=== PATIENT | male | born 1955 | race Caucasian/White ===

== ENCOUNTER → 2020-07-22 | Outpatient (CLI) | payer OTHER ==
[~2020-07-22] MED LIST: ASPIRIN325 PO; BYSTOLIC 5 MG5 MG PO; COZAAR100 MG PO; EFFIENT10 MG PO; LIPITOR80 MG PO; NITROQUICK0.4 MG SL; PRILOSEC40 MG PO
== END ==
LOC: CAT 12-21 11:34
PROVIDERS: ATTEND Internal Medicine Cardiovascular Disease
DX: Z13.6 Encounter for screening for cardiovascular disorders (principal); I25.10 Atherosclerotic heart disease of native coronary artery without angina pectoris; E78.00 Pure hypercholesterolemia, unspecified

== ENCOUNTER → 2021-02-23 | Outpatient (CLI) | payer OTHER | LOC: SJCVCIMAG 10:14 | PROVIDERS: ATTEND Internal Medicine Cardiovascular Disease | DX: I65.23 Occlusion and stenosis of bilateral carotid arteries (principal); F17.200 Nicotine dependence, unspecified, uncomplicated; Z79.899 Other long term (current) drug therapy ==

== ENCOUNTER → 2021-03-17 | Outpatient (CLI) | payer OTHER | LOC: SJCVCIMAG 08:28 | PROVIDERS: ATTEND Internal Medicine Cardiovascular Disease | DX: I08.3 Combined rheumatic disorders of mitral, aortic and tricuspid valves (principal); I48.91 Unspecified atrial fibrillation; I10 Essential (primary) hypertension; I73.9 Peripheral vascular disease, unspecified; E78.5 Hyperlipidemia, unspecified; F17.200 Nicotine dependence, unspecified, uncomplicated ==

== ENCOUNTER → 2021-03-29 | Outpatient (CLI) | payer OTHER ==
[~2021-03-29] VITALS: Ht 188 cm; Wt 111.3 kg
[~2021-03-29] MED LIST changes: +ASA81BEC PO; +BYSTOLIC10 MG PO; +BYSTOLIC20 MG PO; +OMEPRAZOLE 20 M20 M1 PO; +VIAGRA100 MG PO; +XARELTO20 MG PO; +ZETIA10 MG PO
[2021-03-29 07:28] VITALS: BP 141/88
--- NOTE | 2021-03-29 09:06 | TEE ---
[facility] [place] [address] TRANSESOPHAGEAL ECHOCARDIOGRAM Name: AGUSTIN PALOMARES Room #: REG [facility]#: [id number] Admission: 03/29/21 Attend Phys: Quan Bowles MD, Discharge: Date of : 59 Report #: [id number] THIS REPORT FOR: cc: William Webb MD, Neal A. MD Santiago, Patrick MD [facility] ~ APPROVED REPORT Study performed: 03/29/2021 07:42:51 EXAM: Comprehensive 2D, Doppler, and color-flow Echocardiogram Patient Location: Out-Patient Room #: 9 Status: routine BSA: 2.37 HR: 77 bpm BP: 132/90 mmHg Rhythm: Atrial Fibrillation Other Information Study Quality: Good Indications Atrial Fibrillation Echo Enhancing Agent Indication: Rule out Shunt Agent(s) / Amount(s) Used: Agitated Saline 7 cc Procedure After obtaining informed consent, patient underwent transesophageal echo in the [employer]. Type of Sedation : Conscious Sedation Sedation was administered by Nurse. Sedation start time: 0750 Case end Time: 0800 Sedation was achieved intravenously with: Versed (5 mg) Fentanyl (75 mcg) Transesophageal probe was inserted and advanced into esophagus without difficulty by Quan Bowles MD. Echo enhancement indication: R/O Septal defect. Echo enhancement agent administered: Agitated Saline The LUCIE was performed without complications. Synchronized Cardioversion acheived with 120 Joules after [address] [facility] [place] [address] [place] [address] TRANSESOPHAGEAL ECHOCARDIOGRAM Name: AGUSTIN PALOMARES Room #: REG CL [facility]#: [id number] Admission: 03/29/21 Attend Phys: Quan Bowles, Discharge: Date of : 59 Report #: [id number] attempt(s). Rhythm following Synchronized Cardioversion: Normal Sinus Rhythm Throughout the procedure, the blood pressure, pulse oximetry, cardiac rhythm, and rate were monitored. The patient tolerated the procedure without adverse effects. Recovery from conscious sedation was uneventful and vital signs were stable. Left Ventricle The left ventricle is normal size. There is normal left ventricular wall thickness. The left ventricular systolic function is normal. The left ventricular ejection fraction is within the normal range. LVEF is 55%. Right Ventricle The right ventricle is normal size. The right ventricular systolic function is normal. Atria Left atrium is dilated. Interatrial septum is intact without evidence of ASD or PFO. Right atrium is at the upper limits of normal. Aortic Valve The aortic valve is normal in structure. Trace aortic regurgitation. There is no aortic valvular stenosis. Mitral Valve The mitral valve is normal in structure. Trace mitral regurgitation. No evidence of mitral valve stenosis. Tricuspid Valve The tricuspid valve is normal in structure. Trace tricuspid regurgitation. Pulmonic Valve The pulmonary valve is normal in structure. There is no pulmonic valvular regurgitation. Great Vessels The aortic root is normal in size. Pericardium There is no pericardial effusion. <Conclusion> Timeout performed [facility] [address] [place] [address] TRANSESOPHAGEAL ECHOCARDIOGRAM Name: AGUSTIN PALOMARES Room #: REG COUNT INCLUDES THE [facility]#: [id number] Admission: 03/29/21 Attend Phys: Quan Bowles, Discharge: Date of : 59 Report #: [id number] Consent was obtained After appropriate sedation the esophageal probe was advanced without difficulty Left atrial appendage moderate size, no obvious mass or clot detected Left atrium mildly dilated Normal left ventricular size/wall thickness/systolic function Ejection fraction 60% Normal right ventricular size/function [place] aortic valve, trace aortic valve insufficiency Trace mitral valve insufficiency No tricuspid valve insufficiency No evidence of ASD/VSD by color flow/bubble study No pericardial effusion Minimal calcification in the aorta Aortic root normal in size Patient was a successfully cardioverted to normal sinus rhythm after 120 J biphasic mode Patient tolerated procedure well Twelve-lead ECG pending <ELECTRONICALLY SIGNED> By: Quan Bowles MD, FACC 03/29/21904 4 4 Quan Bowles MD, FACC /INF
--- NOTE | 2021-03-29 15:41 | EKG ---
[address] [place] [address] ELECTROCARDIOGRAM REPORT Name: MARIELLEAGUSTIN Room #: REG [facility]#: [id number] Admission: 03/29/21 Attend Phys: Quan Bowles MD, Discharge: Date of : 59 Report #: [id number] [facility] Test Date: 2021-03-29 Test Time: 08:38:50 Pat Name: AGUSTIN MOJICAONOUGH Department: Room: Gender: M Manager Of Engineering: SBUL : 1955 Requested By: Quan Bowles Order Number: [id number] MD: Quan Bowles Measurements Intervals [place] Rate: 56 P: 83 [place]: 61 QRS: 75 QRSD: 102 T: 255 QT: 513 QTc: 496 Interpretive Statements Sinus rhythm Short IL interval Abnormal R-wave progression, late transition Nonspecific T abnormalities, diffuse leads Borderline prolonged QT interval Compared to ECG 09/20/2012 06:58:23 Short IL interval now present T-wave abnormality now present Left ventricular hypertrophy no longer present Electronically Signed On 03-29-2021 15:41:38 CDT by Quan Bowles [email or web address] <ELECTRONICALLY SIGNED> By: Quan Bowles MD, [facility] 03/29/21 1541 0838 Quan Bowles MD, [facility] /EPI
== END | disposition home or self-care (01) ==
LOC: CATH 06:27
PROVIDERS: ATTEND Internal Medicine
DX: I48.91 Unspecified atrial fibrillation (principal); I08.3 Combined rheumatic disorders of mitral, aortic and tricuspid valves; I10 Essential (primary) hypertension; E78.00 Pure hypercholesterolemia, unspecified; K21.9 Gastro-esophageal reflux disease without esophagitis; F17.210 Nicotine dependence, cigarettes, uncomplicated; Z20.822 Contact with and (suspected) exposure to COVID-19; Z98.890 Other specified postprocedural states; Z79.899 Other long term (current) drug therapy

== ENCOUNTER → 2021-08-01 | Outpatient (CLI) | payer OTHER ==
[~2021-08-01] VITALS: Ht 193 cm; Wt 109.0 kg
[2021-08-01 07:52] VITALS: BP 142/87
--- NOTE | 2021-08-01 09:29 | TEE ---
[facility] [place] [address] TRANSESOPHAGEAL ECHOCARDIOGRAM Name: AGUSTIN PALOMARES Room #: REG [facility]#: [id number] Admission: 08/01/21 Attend Phys: Quan Bowles MD, Discharge: Date of : 59 Report #: [id number] THIS REPORT FOR: cc: William Webb MD, Neal A. MD Santiago, Patrick MD [facility] ~ APPROVED REPORT Study performed: 08/01/2021 07:57:19 EXAM: Comprehensive 2D, Doppler, and color-flow Echocardiogram Patient Location: Out-Patient Room #: 9 Status: routine BSA: 2.37 HR: 63 bpm BP: 142/87 mmHg Rhythm: Atrial Fibrillation Other Information Study Quality: Good Indications Atrial Fibrillation Echo Enhancing Agent Indication: Rule out Shunt Agent(s) / Amount(s) Used: Agitated Saline 7 cc Procedure After obtaining informed consent, patient underwent transesophageal echo in the [employer]. Type of Sedation : Conscious Sedation Sedation was administered by Nurse. Sedation start time: 810 Case end Time: 816 Sedation was achieved intravenously with: Versed (5mg) Fentanyl (75mcg) Transesophageal probe was inserted and advanced into esophagus without difficulty by Quan Bowles MD. Echo enhancement indication: R/O Septal defect. Echo enhancement agent administered: Agitated Saline The LUCIE was performed without complications. Synchronized Cardioversion acheived with 150 Joules after [address] [facility] [place] [address] TRANSESOPHAGEAL ECHOCARDIOGRAM Name: AGUSTIN PALOMARES Room #: REG CL [facility]#: [id number] Admission: 08/01/21 Attend Phys: Quan Bowles, Discharge: Date of : 59 Report #: [id number] attempt(s). Rhythm following Synchronized Cardioversion: Normal Sinus Rhythm Throughout the procedure, the blood pressure, pulse oximetry, cardiac rhythm, and rate were monitored. The patient tolerated the procedure without adverse effects. Recovery from conscious sedation was uneventful and vital signs were stable. Left Ventricle The left ventricle is normal size. There is normal LV segmental wall motion. There is normal left ventricular wall thickness. The left ventricular systolic function is normal. The left ventricular ejection fraction is within the normal range. LVEF is >55%. Right Ventricle The right ventricle is normal size. The right ventricular systolic function is normal. Atria Left atrium is dilated. Injection of contrast documented no interatrial shunt. Right atrium is dilated. Aortic Valve The aortic valve is normal in structure. Trace aortic regurgitation. There is no aortic valvular stenosis. Mitral Valve The mitral valve is normal in structure. Trace mitral regurgitation. No evidence of mitral valve stenosis. Tricuspid Valve The tricuspid valve is normal in structure. Trace tricuspid regurgitation. Pulmonic Valve The pulmonary valve is normal in structure. There is no pulmonic valvular regurgitation. Great Vessels The aortic root is normal in size. Pericardium There is no pericardial effusion. <Conclusion> Consent was obtained [facility] [address] [place] [address] TRANSESOPHAGEAL ECHOCARDIOGRAM Name: AGUSTIN PALOMARES Room #: REG [facility]#: [id number] Admission: 08/01/21 Attend Phys: Quan Bowles, Discharge: Date of : 59 Report #: [id number] Timeout performed Esophageal probe was advanced without difficulty Left atrial appendage, moderate size no obvious mass or clot detected Mild left atrial enlargement Normal left ventricle size/wall thickness Ejection fraction 60% Trace aortic/mitral/tricuspid insufficiency No evidence of ASD/VSD by color flow/bubble study Aorta minimal calcification throughout Patient successfully cardioverted to sinus rhythm after 150 J/biphasic mode Patient tolerated procedure well Total of 5 of Versed and 75 of fentanyl Twelve-lead ECG pending. <ELECTRONICALLY SIGNED> By: Quan Bowles MD, FACC 08/01/21928 8 8 Quan Bowles MD, FACC /INF
--- NOTE | 2021-08-01 10:25 | EKG ---
[address] [address] ELECTROCARDIOGRAM REPORT Name: MARIELLEAGUSTIN LANDRY Room #: REG [facility]#: [id number] Admission: 08/01/21 Attend Phys: Quan Bowles MD, Discharge: Date of : 59 Report #: [id number] [facility] Test Date: 2021-08-01 Test Time: 08:28:06 Pat Name: AGUSTIN MOJICAONOUGH Department: Room: Gender: M Fe[employer] Trimmer: : 1955 Requested By: Quan Bowles Order Number: [id number] MD: Quan Bowles Measurements Intervals [place] Rate: 55 P: 57 RI: 226 QRS: 75 QRSD: 119 T: -90 QT: 506 QTc: 484 Interpretive Statements Sinus rhythm Prolonged RI interval Nonspecific intraventricular conduction delay Borderline repolarization abnormality Compared to ECG 03/29/2021 08:38:50 First degree AV block now present Intraventricular conduction delay now present Short RI interval no longer present T-wave abnormality no longer present Electronically Signed On 08-01-2021 10:25:[address] [employer] by Quan Bowles [email or web address] <ELECTRONICALLY SIGNED> By: Quan Bowles MD, [facility] 08/01/21 1025 7 7 Quan Bowles MD, [facility] /EPI
== END | disposition home or self-care (01) ==
LOC: CATH 06:19
PROVIDERS: ATTEND Internal Medicine
DX: I48.91 Unspecified atrial fibrillation (principal); I08.3 Combined rheumatic disorders of mitral, aortic and tricuspid valves; I10 Essential (primary) hypertension; E78.5 Hyperlipidemia, unspecified; K21.9 Gastro-esophageal reflux disease without esophagitis; I73.9 Peripheral vascular disease, unspecified; I25.10 Atherosclerotic heart disease of native coronary artery without angina pectoris; F17.210 Nicotine dependence, cigarettes, uncomplicated; Z98.890 Other specified postprocedural states; Z79.899 Other long term (current) drug therapy; Z79.01 Long term (current) use of anticoagulants; Z82.49 Family history of ischemic heart disease and other diseases of the circulatory system